=== PATIENT | female | born 1990 | race Caucasian/White ===

== ENCOUNTER 2016-07-11 04:12 | Emergency (ER) | payer OTHER ==
[2016-07-11] MEDS ORDERED: KETOROLAC 30 MG/ML VIAL (J1885) As Ordered ONE (04:37)
--- NOTE | 2016-07-11 05:39 | EDDOCDS ---
Physician Documentation [facility] Name: Eufemia Alonso Age: 25 yrs Sex: Female : 1990 Arrival Date: 07/11/2016 Time: 04:12 Bed 8 Private MD: Disposition: 07/11/16 05:27 Discharged to Home/Self Care. Impression: Unspecified dislocation of right acromioclavicular joint - Grade I - no more than 50 %. - Condition is Stable. - Medication Reconciliation, Local Pharmacy Hours form. - Follow up: Alok Mack; When: Call to arrange an appointment; Reason: Recheck today's complaints. - Problem is new. - Symptoms have improved. Historical: - Allergies: No known drug Allergies; - Home Meds: 1. none - PMHx: none; - PSHx: none; - Social history: Smoking status: Patient uses tobacco products, current every day smoker. No barriers to communication noted, The patient speaks fluent [place]. - Family history: Not pertinent. - : The pt / caregiver states he / she is not on anticoagulants. Home medication list is obtained from the patient. - Exposure Risk Screening:: None identified. GLOBAL CEO: 07/11 04:16 LMP 06/02/2016 af2 Vital Signs: 04:16 BP 157 / 77 RA; Pulse 105; Resp 18 S; Temp 97.4(O); Pulse Ox 99% on R/A; Weight 61.23 af2 kg / 134.99 lbs (R); Height 5 ft. 6 in. (167.64 cm) (R); Pain 5/10; 05:34 BP 132 / 75; Pulse 90; Resp 18; Temp 98.0(O); Pulse Ox 99% on R/A; Pain 0/10; kas2 04:16 Body Mass Index 21.79 (61.23 kg, 167.64 cm) af2 MDM: 04:33 ketorolac 60 mg IM once ordered. cs11 04:34 Shoulder, Complete Ordered. EDMS 05:02 Financial registration complete. hs2 05:03 [facility] Payment Agreement was scanned into [employer] and attached to record. hs2 05:05 Clavicle Ordered. EDMS 05:25 Sling ordered. cs11 Administered Medications: 04:41 Drug: ketorolac 60 mg [ketorolac 30 mg/mL (1 mL) injection solution (2 mL)] Route: IM; kas2 Site: left deltoid; Signatures: Dispatcher [employer] Juan Diego Gregg, DO cs11 Norma EsparzaRN RN af2 Eloisa Lozoya, Reg Reg hs2 Fadumo Moon RN RN kas2 The chart was reviewed and I authenticate all verbal orders and agree with the evaluation and treatment provided.Attachments: 05:03 [facility] Payment Agreement hs2 MTDD
--- NOTE | 2016-07-11 05:39 | EDDOCDS ---
Nurse's Notes [facility] Name: Eufemia Alonso Age: 25 yrs Sex: Female : 1990 Arrival Date: 07/11/2016 Time: 04:12 Bed 8 Private MD: Diagnosis: Unspecified dislocation of right acromioclavicular joint-Grade I - no more than 50 % Presentation: 07/11 04:17 Presenting complaint: Patient states: "I dislocated my right shoulder." Pt declines to af2 answer how. Adult Sepsis Screening: The patient does not have new or worsening altered mentation. Patient's respiratory rate is less than 22. Systolic blood pressure is greater than 100. Patient has a qSOFA score of 0- Negative Sepsis Screen. Suicide/Homicide risk assessment- the patient denies having any suicidal and/or homicidal ideations and does not present with any other emotional, behavioral or mental health complaints. 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 Transition of care: patient was not received from another setting of care. 04:17 Acuity: LOKI Level 4 af2 04:17 Method Of Arrival: Walkin/Carried/Asstd af2 Triage Assessment: 04:19 General: Appears in no apparent distress, Behavior is cooperative. Pain: Location: af2 anterior aspect of right shoulder Pain currently is 5 out of 10 on a pain scale. Pt Declines HIV testing. Musculoskeletal: Reports pain in anterior aspect of right shoulder. 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 none - PMHx: none; - PSHx: none; - Social history: Smoking status: Patient uses tobacco products, current every day smoker. No barriers to communication noted, The patient speaks fluent Swedish. - Family history: Not pertinent. - : The pt / caregiver states he / she is not on anticoagulants. Home medication list is obtained from the patient. - Exposure Risk Screening:: None identified. Screenin:20 Screening information is obtained from the patient. Fall risk: No risks identified. af2 Assistance ADL's: requires no assistance with activities of daily living. Abuse/DV Screen: The patient / caregiver reports he/she is: not in a situation that causes fear, pain or injury. Nutritional screening: No deficits noted. Advance Directives: There is no active DNR order. home support is adequate. 04:42 Abuse/DV Screen: The patient / caregiver reports he/she is: in a living situation that kas2 causes fear, pain or injury. Patient has a safe place to go to with a friend. Patient is refusing to talk with one of our social workers about her situation but took the pamphlets for domestic violence and victim assistance program. Assessment: 04:40 General: Appears in no apparent distress, uncomfortable, well nourished, well groomed, kas2 Behavior is appropriate for age, cooperative. Pain: Location: anterior aspect of right shoulder and right arm Pain currently is 5 out of 10 on a pain scale. Neurological: Level of Consciousness is awake, alert, Oriented to person, place, time. Cardiovascular: Rhythm is regular. Respiratory: Airway is patent Respiratory effort is even, unlabored, Respiratory pattern is regular, symmetrical, Breath sounds are clear bilaterally. Derm: Skin is intact, Skin is dry, Skin is pink, warm & dry. Skin temperature is warm. Musculoskeletal: Circulation, motion, and sensation intact Capillary refill < 3 seconds Range of motion limited in anterior aspect of right shoulder and right arm No deformity noted Swelling absent. 05:17 General: Patient sitting in bed with friend at bedside. No apparent distress. Appears kas2 comfortable. Call sinclair within reach. Will continue to monitor.. 05:34 General: Sling applied to R arm.. kas2 Vital Signs: 04:16 BP 157 / 77 RA; Pulse 105; Resp 18 S; Temp 97.4(O); Pulse Ox 99% on R/A; Weight 61.23 af2 kg (R); Height 5 ft. 6 in. (167.64 cm) (R); Pain 5/10; 05:34 BP 132 / 75; Pulse 90; Resp 18; Temp 98.0(O); Pulse Ox 99% on R/A; Pain 0/10; kas2 04:16 Body Mass Index 21.79 (61.23 kg, 167.64 cm) af2 Vitals: 04:16 Log In Time: July 11, 2016 at 04:09. af2 ED Course: 04:13 Patient visited by Elaine Long. gjb 04:13 Patient moved to Waiting gj 04:18 Triage Initiated af2 04:21 Fadumo Moon RN is Primary Nurse. af2 04:21 Patient moved to 8 af2 04:26 Juan Diego Diaz DO is Attending Physician. cs11 04:26 Patient visited by Juan Diego Diaz DO. cs11 04:43 Patient visited by Fadumo Moon RN. kas2 05:03 [facility] Payment Agreement was scanned into [employer] and attached to record. hs2 05:07 Patient name changed from Eufemia\\S\\\\S\\Gavin\\S\\ to Eufemia\\S\\ \\S\\Gavin. EDMS 05:08 Patient name changed from Eufemia\\S\\ \\S\\Gavin\\S\\ to Eufemia\\S\\Alonso\\S\\Gavin. EDMS 05:20 Patient visited by Fadumo Moon RN. kas2 05:25 Alok Mack is Referral Physician. cs11 05:37 No IV's were initiated during this patient's visit. No procedures done that require kas2 assistance. Sling applied to right arm. Patient with positive distal sensation and brisk distal capillary refill after application. 05:38 Patient visited by Fadumo Moon RN. kas2 05:38 The patient / caregiver is instructed regarding the plan of care and ED course. kas2 Administered Medications: 04:41 Drug: ketorolac 60 mg [ketorolac 30 mg/mL (1 mL) injection solution (2 mL)] Route: IM; kas2 Site: left deltoid; Order Results: There are currently no results for this order. Outcome: 05:27 Discharge ordered by Provider. cs11 05:37 Discharge Assessment: patient administered narcotics - no. The following High Risk [facility] Discharge criteria are identified: None. Discharged to home ambulatory, with friend. Condition: good Condition: stable Condition: improved. No special radiology studies were completed. Property :Personal belongings accompany Pt. 05:38 Patient left the ED. kas2 Signatures: Dispatcher [employer] EDMS Juan Diego Diaz DO DO cs11 Norma Esparza RN RN af2 Elaine Long Hillary, Reg Reg hs2 Fadumo Moon RN RN kas2 MTDD
--- NOTE | 2016-07-11 08:06 | REP ---
Clinical: Trauma. Technique: AP and axial views of the right clavicle. Findings: There is a small smoothly corticated calcified density in the acromioclavicular joint which is of uncertain etiology. While acute fracture cannot be excluded, its appearance more likely suggests a nonacute, chronic structure and may be related to old injury or unfused apophysis. No further evidence for acute trauma/injury is appreciated. The sternoclavicular joint and the body of the clavicle appear intact. The glenohumeral joint appears intact. Impression: Small density in the acromioclavicular joint as described above likely nonacute however correlation is recommended. Signed by Jose Carlos Guevara MD 07/11/2016 07:57 A
--- NOTE | 2016-07-11 08:28 | REP ---
Clinical: Trauma. Technique: Internal rotation, external rotation, and Y view. Findings: There is a small smoothly corticated calcified density in the acromioclavicular joint which is of uncertain etiology. While acute fracture cannot be excluded, its appearance more likely suggests a nonacute, chronic structure and may be related to old injury or unfused apophysis. The acromioclavicular joint is otherwise normal in appearance. The glenohumeral joint appears intact and normal. Impression: Well corticated density at the acromioclavicular joint appears nonacute and possibly related to old injury or unfused apophysis. Right shoulder appears otherwise normal. Signed by Jose Carlos Guevara MD 07/11/2016 08:19 A
--- NOTE | 2016-07-13 06:38 | EDDOCDS ---
Physician Documentation [facility] Name: Eufemia Alonso Age: 25 yrs Sex: Female : 1990 Arrival Date: 07/11/2016 Time: 04:12 Bed 8 Private MD: Disposition: 07/11/16 05:27 Discharged to Home/Self Care. Impression: Unspecified dislocation of right acromioclavicular joint - Grade I - no more than 50 %. - Condition is Stable. - Medication Reconciliation, Local Pharmacy Hours form. - Follow up: Alok Mack; When: Call to arrange an appointment; Reason: Recheck today's complaints. - Problem is new. - Symptoms have improved. Historical: - Allergies: No known drug Allergies; - Home Meds: 1. none - PMHx: none; - PSHx: none; - Social history: Smoking status: Patient uses tobacco products, current every day smoker. No barriers to communication noted, The patient speaks fluent [place]. - Family history: Not pertinent. - : The pt / caregiver states he / she is not on anticoagulants. Home medication list is obtained from the patient. - Exposure Risk Screening:: None identified. 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 6 in. (167.64 cm) (R); Pain 5/10; 05:34 BP 132 / 75; Pulse 90; Resp 18; Temp 98.0(O); Pulse Ox 99% on R/A; Pain 0/10; kas2 04:16 Body Mass Index 21.79 (61.23 kg, 167.64 cm) af2 MDM: 04:33 ketorolac 60 mg IM once ordered. cs11 04:34 Shoulder, Complete Ordered. EDMS 05:02 Financial registration complete. hs2 05:03 [facility] Payment Agreement was scanned into [employer] and attached to record. hs2 05:05 Clavicle Ordered. EDMS 05:25 Sling ordered. cs11 09:05 T-Sheet-- Draft Copy was scanned into [employer] and attached to record. [facility] Administered Medications: 04:41 Drug: ketorolac 60 mg [ketorolac 30 mg/mL (1 mL) injection solution (2 mL)] Route: IM; [facility] Site: left deltoid; Signatures: Dispatcher [employer] EDJuan Diego Garza DO DO cs11 Norma Esparza RN RN af2 Eloisa Lozoya, Reg Reg hs2 Fadumo Moon RN RN kas2 Carmen Rausch [facility] The chart was reviewed and I authenticate all verbal orders and agree with the evaluation and treatment provided.Attachments: 05:03 [facility] Payment Agreement hs2 09:05 T-Sheet-- Draft Copy [facility] Chart Complete MTDD
--- NOTE | 2016-07-13 06:38 | EDDOCDS ---
Nurse's Notes [facility] Name: Eufemia Alonso Age: 25 yrs Sex: Female : 1990 Arrival Date: 07/11/2016 Time: 04:12 Bed 8 Private MD: Diagnosis: Unspecified dislocation of right acromioclavicular joint-Grade I - no more than 50 % Presentation: 07/11 04:17 Presenting complaint: Patient states: "I dislocated my right shoulder." Pt declines to af2 answer how. Adult Sepsis Screening: The patient does not have new or worsening altered mentation. Patient's respiratory rate is less than 22. Systolic blood pressure is greater than 100. Patient has a qSOFA score of 0- Negative Sepsis Screen. Suicide/Homicide risk assessment- the patient denies having any suicidal and/or homicidal ideations and does not present with any other emotional, behavioral or mental health complaints. 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 Transition of care: patient was not received from another setting of care. 04:17 Acuity: LOKI Level 4 af2 04:17 Method Of Arrival: Walkin/Carried/Asstd af2 Triage Assessment: 04:19 General: Appears in no apparent distress, Behavior is cooperative. Pain: Location: af2 anterior aspect of right shoulder Pain currently is 5 out of 10 on a pain scale. Pt Declines HIV testing. Musculoskeletal: Reports pain in anterior aspect of right shoulder. 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 none - PMHx: none; - PSHx: none; - Social history: Smoking status: Patient uses tobacco products, current every day smoker. No barriers to communication noted, The patient speaks fluent Pashto. - Family history: Not pertinent. - : The pt / caregiver states he / she is not on anticoagulants. Home medication list is obtained from the patient. - Exposure Risk Screening:: None identified. Screenin:20 Screening information is obtained from the patient. Fall risk: No risks identified. af2 Assistance ADL's: requires no assistance with activities of daily living. Abuse/DV Screen: The patient / caregiver reports he/she is: not in a situation that causes fear, pain or injury. Nutritional screening: No deficits noted. Advance Directives: There is no active DNR order. home support is adequate. 04:42 Abuse/DV Screen: The patient / caregiver reports he/she is: in a living situation that kas2 causes fear, pain or injury. Patient has a safe place to go to with a friend. Patient is refusing to talk with one of our social workers about her situation but took the pamphlets for domestic violence and victim assistance program. Assessment: 04:40 General: Appears in no apparent distress, uncomfortable, well nourished, well groomed, kas2 Behavior is appropriate for age, cooperative. Pain: Location: anterior aspect of right shoulder and right arm Pain currently is 5 out of 10 on a pain scale. Neurological: Level of Consciousness is awake, alert, Oriented to person, place, time. Cardiovascular: Rhythm is regular. Respiratory: Airway is patent Respiratory effort is even, unlabored, Respiratory pattern is regular, symmetrical, Breath sounds are clear bilaterally. Derm: Skin is intact, Skin is dry, Skin is pink, warm & dry. Skin temperature is warm. Musculoskeletal: Circulation, motion, and sensation intact Capillary refill < 3 seconds Range of motion limited in anterior aspect of right shoulder and right arm No deformity noted Swelling absent. 05:17 General: Patient sitting in bed with friend at bedside. No apparent distress. Appears kas2 comfortable. Call sinclair within reach. Will continue to monitor.. 05:34 General: Sling applied to R arm.. kas2 Vital Signs: 04:16 BP 157 / 77 RA; Pulse 105; Resp 18 S; Temp 97.4(O); Pulse Ox 99% on R/A; Weight 61.23 af2 kg (R); Height 5 ft. 6 in. (167.64 cm) (R); Pain 5/10; 05:34 BP 132 / 75; Pulse 90; Resp 18; Temp 98.0(O); Pulse Ox 99% on R/A; Pain 0/10; kas2 04:16 Body Mass Index 21.79 (61.23 kg, 167.64 cm) af2 Vitals: 04:16 Log In Time: July 11, 2016 at 04:09. af2 ED Course: 04:13 Patient visited by Elaine Long. gjb 04:13 Patient moved to Waiting gj 04:18 Triage Initiated af2 04:21 Fadumo Moon RN is Primary Nurse. af2 04:21 Patient moved to 8 af2 04:26 Juan Diego Diaz DO is Attending Physician. cs11 04:26 Patient visited by Juan Diego Diaz DO. cs11 04:43 Patient visited by Fadumo Moon RN. kas2 05:03 [facility] Payment Agreement was scanned into [employer] and attached to record. hs2 05:07 Patient name changed from Eufemia\\S\\\\S\\Gavin\\S\\ to Eufemia\\S\\ \\S\\Gavin. EDMS 05:08 Patient name changed from Eufemia\\S\\ \\S\\Gavin\\S\\ to Eufemia\\S\\Alonso\\S\\Gavin. EDMS 05:20 Patient visited by Fadumo Moon RN. kas2 05:25 Alok Mack is Referral Physician. cs11 05:37 No IV's were initiated during this patient's visit. No procedures done that require kas2 assistance. Sling applied to right arm. Patient with positive distal sensation and brisk distal capillary refill after application. 05:38 Patient visited by Fadumo Moon RN. kas2 05:38 The patient / caregiver is instructed regarding the plan of care and ED course. kas2 08:32 Clavicle Returned. EDMS 08:33 Shoulder, Complete Returned. EDMS 09:05 T-Sheet-- Draft Copy was scanned into [employer] and attached to record. [facility] Administered Medications: 04:41 Drug: ketorolac 60 mg [ketorolac 30 mg/mL (1 mL) injection solution (2 mL)] Route: IM; kas2 Site: left deltoid; Order Results: Radiology Order: Shoulder, Complete Test: Shoulder, Complete REASON FOR EXAMINATION: Trauma; Clinical: Trauma.; ; Technique: Internal rotation, external rotation, and Y view.; ; Findings:; ; There is a small smoothly corticated calcified density in the acromioclavicular; joint which is of uncertain etiology. While acute fracture cannot be excluded,; its appearance more likely suggests a nonacute, chronic structure and may be; related to old injury or unfused apophysis. The acromioclavicular joint is; otherwise normal in appearance. The glenohumeral joint appears intact and; normal.; ; Impression:; Well corticated density at the acromioclavicular joint appears nonacute and; possibly related to old injury or unfused apophysis.; Right shoulder appears otherwise normal.; ; ; Signed by; Jose Carlos Guevara MD 07/11/2016 08:19 A; Radiology Order: Clavicle Test: Clavicle REASON FOR EXAMINATION: axial R clav; Clinical: Trauma.; ; Technique: AP and axial views of the right clavicle.; ; Findings:; There is a small smoothly corticated calcified density in the acromioclavicular; joint which is of uncertain etiology. While acute fracture cannot be excluded,; its appearance more likely suggests a nonacute, chronic structure and may be; related to old injury or unfused apophysis. No further evidence for acute; trauma/injury is appreciated. The sternoclavicular joint and the body of the; clavicle appear intact. The glenohumeral joint appears intact.; ; Impression:; Small density in the acromioclavicular joint as described above likely nonacute; however correlation is recommended.; ; ; Signed by; Jose Carlos Guevara MD 07/11/2016 07:57 A; Outcome: 05:27 Discharge ordered by Provider. cs11 05:37 Discharge Assessment: patient administered narcotics - no. The following High Risk [facility] Discharge criteria are identified: None. Discharged to home ambulatory, with friend. Condition: good Condition: stable Condition: improved. No special radiology studies were completed. Property :Personal belongings accompany Pt. 05:38 Patient left the ED. [facility] Signatures: Dispatcher [employer] EDMS Juan Diego Diaz DO DO cs11 Norma Esparza RN RN af2 Elaine Long Hillary, Reg Reg hs2 Fadumo Moon RN RN kas2 Carmen Rausch Chart Complete MTDD
--- NOTE | 2016-07-13 06:38 | EDDOCDS ---
Physician Documentation [facility] Name: Eufemia Alonso Age: 25 yrs Sex: Female : 1990 Arrival Date: 07/11/2016 Time: 04:12 Bed 8 Private MD: Disposition: 07/11/16 05:27 Discharged to Home/Self Care. Impression: Unspecified dislocation of right acromioclavicular joint - Grade I - no more than 50 %. - Condition is Stable. - Medication Reconciliation, Local Pharmacy Hours form. - Follow up: Alok Mack; When: Call to arrange an appointment; Reason: Recheck today's complaints. - Problem is new. - Symptoms have improved. Historical: - Allergies: No known drug Allergies; - Home Meds: 1. none - PMHx: none; - PSHx: none; - Social history: Smoking status: Patient uses tobacco products, current every day smoker. No barriers to communication noted, The patient speaks fluent Tanzanian. - Family history: Not pertinent. - : The pt / caregiver states he / she is not on anticoagulants. Home medication list is obtained from the patient. - Exposure Risk Screening:: None identified. 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 6 in. (167.64 cm) (R); Pain 5/10; 05:34 BP 132 / 75; Pulse 90; Resp 18; Temp 98.0(O); Pulse Ox 99% on R/A; Pain 0/10; kas2 04:16 Body Mass Index 21.79 (61.23 kg, 167.64 cm) af2 MDM: 04:33 ketorolac 60 mg IM once ordered. cs11 04:34 Shoulder, Complete Ordered. EDMS 05:02 Financial registration complete. hs2 05:03 [facility] Payment Agreement was scanned into [employer] and attached to record. hs2 05:05 Clavicle Ordered. EDMS 05:25 Sling ordered. cs11 09:05 T-Sheet-- Draft Copy was scanned into [employer] and attached to record. [facility] Administered Medications: 04:41 Drug: ketorolac 60 mg [ketorolac 30 mg/mL (1 mL) injection solution (2 mL)] Route: IM; [facility] Site: left deltoid; Signatures: Dispatcher [employer] EDJuan Diego Garza DO DO cs11 Norma Esparza RN RN af2 Eloisa Lozoya, Reg Reg hs2 Fadumo Moon RN RN kas2 Carmen Rausch [facility] The chart was reviewed and I authenticate all verbal orders and agree with the evaluation and treatment provided.Attachments: 05:03 [facility] Payment Agreement hs2 09:05 T-Sheet-- Draft Copy [facility] Chart Complete MTDD
--- NOTE | 2016-07-13 20:31 | EDDOCDS ---
Physician Documentation [facility] Name: Eufemia Alonso Age: 25 yrs Sex: Female : 1990 Arrival Date: 07/11/2016 Time: 04:12 Bed 8 Private MD: Disposition: 07/11/16 05:27 Discharged to Home/Self Care. Impression: Unspecified dislocation of right acromioclavicular joint - Grade I - no more than 50 %. - Condition is Stable. - Medication Reconciliation, Local Pharmacy Hours form. - Follow up: Alok Mack; When: Call to arrange an appointment; Reason: Recheck today's complaints. - Problem is new. - Symptoms have improved. Historical: - Allergies: No known drug Allergies; - Home Meds: 1. none - PMHx: none; - PSHx: none; - Social history: Smoking status: Patient uses tobacco products, current every day smoker. No barriers to communication noted, The patient speaks fluent Liberian. - Family history: Not pertinent. - : The pt / caregiver states he / she is not on anticoagulants. Home medication list is obtained from the patient. - Exposure Risk Screening:: None identified. 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 6 in. (167.64 cm) (R); Pain 5/10; 05:34 BP 132 / 75; Pulse 90; Resp 18; Temp 98.0(O); Pulse Ox 99% on R/A; Pain 0/10; kas2 04:16 Body Mass Index 21.79 (61.23 kg, 167.64 cm) af2 MDM: 04:33 ketorolac 60 mg IM once ordered. cs11 04:34 Shoulder, Complete Ordered. EDMS 05:02 Financial registration complete. hs2 05:03 [facility] Payment Agreement was scanned into [employer] and attached to record. hs2 05:05 Clavicle Ordered. EDMS 05:25 Sling ordered. cs11 09:05 T-Sheet-- Draft Copy was scanned into [employer] and attached to record. [facility] Administered Medications: 04:41 Drug: ketorolac 60 mg [ketorolac 30 mg/mL (1 mL) injection solution (2 mL)] Route: IM; kas2 Site: left deltoid; Addendum: 07/13/2016 20:29 Radiology Callback: Radiology results faxed to primary care physician/provider. ncog ml faxed formal report of right clavicle film mlg. Signatures: Dispatcher MedHo EDOR Akilah Dias MD MD ml Juan Diego Diaz, DO cs11 Norma EsparzaRN RN af2 Eloisa Lozoya, Reg Reg hs2 Fadumo Moon RN RN kas2 Carmen Rausch [facility] The chart was reviewed and I authenticate all verbal orders and agree with the evaluation and treatment provided.Attachments: 07/11 05:03 [facility] Payment Agreement hs2 09:05 T-Sheet-- Draft Copy [facility] MTDD
--- NOTE | 2016-07-13 20:31 | EDDOCDS ---
Nurse's Notes [facility] Name: Eufemia Alonso Age: 25 yrs Sex: Female : 1990 Arrival Date: 07/11/2016 Time: 04:12 Bed 8 Private MD: Diagnosis: Unspecified dislocation of right acromioclavicular joint-Grade I - no more than 50 % Presentation: 07/11 04:17 Presenting complaint: Patient states: "I dislocated my right shoulder." Pt declines to af2 answer how. Adult Sepsis Screening: The patient does not have new or worsening altered mentation. Patient's respiratory rate is less than 22. Systolic blood pressure is greater than 100. Patient has a qSOFA score of 0- Negative Sepsis Screen. Suicide/Homicide risk assessment- the patient denies having any suicidal and/or homicidal ideations and does not present with any other emotional, behavioral or mental health complaints. 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 Transition of care: patient was not received from another setting of care. 04:17 Acuity: LOKI Level 4 af2 04:17 Method Of Arrival: Walkin/Carried/Asstd af2 Triage Assessment: 04:19 General: Appears in no apparent distress, Behavior is cooperative. Pain: Location: af2 anterior aspect of right shoulder Pain currently is 5 out of 10 on a pain scale. Pt Declines HIV testing. Musculoskeletal: Reports pain in anterior aspect of right shoulder. 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 none - PMHx: none; - PSHx: none; - Social history: Smoking status: Patient uses tobacco products, current every day smoker. No barriers to communication noted, The patient speaks fluent German. - Family history: Not pertinent. - : The pt / caregiver states he / she is not on anticoagulants. Home medication list is obtained from the patient. - Exposure Risk Screening:: None identified. Screenin:20 Screening information is obtained from the patient. Fall risk: No risks identified. af2 Assistance ADL's: requires no assistance with activities of daily living. Abuse/DV Screen: The patient / caregiver reports he/she is: not in a situation that causes fear, pain or injury. Nutritional screening: No deficits noted. Advance Directives: There is no active DNR order. home support is adequate. 04:42 Abuse/DV Screen: The patient / caregiver reports he/she is: in a living situation that kas2 causes fear, pain or injury. Patient has a safe place to go to with a friend. Patient is refusing to talk with one of our social workers about her situation but took the pamphlets for domestic violence and victim assistance program. Assessment: 04:40 General: Appears in no apparent distress, uncomfortable, well nourished, well groomed, kas2 Behavior is appropriate for age, cooperative. Pain: Location: anterior aspect of right shoulder and right arm Pain currently is 5 out of 10 on a pain scale. Neurological: Level of Consciousness is awake, alert, Oriented to person, place, time. Cardiovascular: Rhythm is regular. Respiratory: Airway is patent Respiratory effort is even, unlabored, Respiratory pattern is regular, symmetrical, Breath sounds are clear bilaterally. Derm: Skin is intact, Skin is dry, Skin is pink, warm & dry. Skin temperature is warm. Musculoskeletal: Circulation, motion, and sensation intact Capillary refill < 3 seconds Range of motion limited in anterior aspect of right shoulder and right arm No deformity noted Swelling absent. 05:17 General: Patient sitting in bed with friend at bedside. No apparent distress. Appears kas2 comfortable. Call sinclair within reach. Will continue to monitor.. 05:34 General: Sling applied to R arm.. kas2 Vital Signs: 04:16 BP 157 / 77 RA; Pulse 105; Resp 18 S; Temp 97.4(O); Pulse Ox 99% on R/A; Weight 61.23 af2 kg (R); Height 5 ft. 6 in. (167.64 cm) (R); Pain 5/10; 05:34 BP 132 / 75; Pulse 90; Resp 18; Temp 98.0(O); Pulse Ox 99% on R/A; Pain 0/10; kas2 04:16 Body Mass Index 21.79 (61.23 kg, 167.64 cm) af2 Vitals: 04:16 Log In Time: July 11, 2016 at 04:09. af2 ED Course: 04:13 Patient visited by Elaine Long. gjb 04:13 Patient moved to Waiting gj 04:18 Triage Initiated af2 04:21 Fadumo Moon RN is Primary Nurse. af2 04:21 Patient moved to 8 af2 04:26 Juan Diego Diaz DO is Attending Physician. cs11 04:26 Patient visited by Juan Diego Diaz DO. cs11 04:43 Patient visited by Fadumo Moon RN. kas2 05:03 [facility] Payment Agreement was scanned into [employer] and attached to record. hs2 05:07 Patient name changed from Eufemia\\S\\\\S\\Gavin\\S\\ to Eufemia\\S\\ \\S\\Gavin. EDMS 05:08 Patient name changed from Eufemia\\S\\ \\S\\Gavin\\S\\ to Eufemia\\S\\Alonso\\S\\Gavin. EDMS 05:20 Patient visited by Fadumo Moon RN. kas2 05:25 Alok Mack is Referral Physician. cs11 05:37 No IV's were initiated during this patient's visit. No procedures done that require kas2 assistance. Sling applied to right arm. Patient with positive distal sensation and brisk distal capillary refill after application. 05:38 Patient visited by Fadumo Moon RN. kas2 05:38 The patient / caregiver is instructed regarding the plan of care and ED course. kas2 08:32 Clavicle Returned. EDMS 08:33 Shoulder, Complete Returned. EDMS 09:05 T-Sheet-- Draft Copy was scanned into [employer] and attached to record. [facility] Administered Medications: 04:41 Drug: ketorolac 60 mg [ketorolac 30 mg/mL (1 mL) injection solution (2 mL)] Route: IM; kas2 Site: left deltoid; Order Results: Radiology Order: Shoulder, Complete Test: Shoulder, Complete REASON FOR EXAMINATION: Trauma; Clinical: Trauma.; ; Technique: Internal rotation, external rotation, and Y view.; ; Findings:; ; There is a small smoothly corticated calcified density in the acromioclavicular; joint which is of uncertain etiology. While acute fracture cannot be excluded,; its appearance more likely suggests a nonacute, chronic structure and may be; related to old injury or unfused apophysis. The acromioclavicular joint is; otherwise normal in appearance. The glenohumeral joint appears intact and; normal.; ; Impression:; Well corticated density at the acromioclavicular joint appears nonacute and; possibly related to old injury or unfused apophysis.; Right shoulder appears otherwise normal.; ; ; Signed by; Jose Carlos Guevara MD 07/11/2016 08:19 A; Radiology Order: Clavicle Test: Clavicle REASON FOR EXAMINATION: axial R clav; Clinical: Trauma.; ; Technique: AP and axial views of the right clavicle.; ; Findings:; There is a small smoothly corticated calcified density in the acromioclavicular; joint which is of uncertain etiology. While acute fracture cannot be excluded,; its appearance more likely suggests a nonacute, chronic structure and may be; related to old injury or unfused apophysis. No further evidence for acute; trauma/injury is appreciated. The sternoclavicular joint and the body of the; clavicle appear intact. The glenohumeral joint appears intact.; ; Impression:; Small density in the acromioclavicular joint as described above likely nonacute; however correlation is recommended.; ; ; Signed by; Jose Carlos Guevara MD 07/11/2016 07:57 A; Outcome: 05:27 Discharge ordered by Provider. cs11 05:37 Discharge Assessment: patient administered narcotics - no. The following High Risk [facility] Discharge criteria are identified: None. Discharged to home ambulatory, with friend. Condition: good Condition: stable Condition: improved. No special radiology studies were completed. Property :Personal belongings accompany Pt. 05:38 Patient left the ED. [facility] Signatures: Dispatcher MedHost EDMS Juan Diego Diaz DO DO cs11 Norma Esparza RN RN ashok2 Elaine Long Hillary, Reg Reg hs2 Fadumo Moon RN RN kas2 Carmen Rausch MTDD
--- NOTE | 2016-07-13 20:31 | EDDOCDS ---
Physician Documentation [facility] Name: Eufemia Alonso Age: 25 yrs Sex: Female : 1990 Arrival Date: 07/11/2016 Time: 04:12 Bed 8 Private MD: Disposition: 07/11/16 05:27 Discharged to Home/Self Care. Impression: Unspecified dislocation of right acromioclavicular joint - Grade I - no more than 50 %. - Condition is Stable. - Medication Reconciliation, Local Pharmacy Hours form. - Follow up: Alok Mack; When: Call to arrange an appointment; Reason: Recheck today's complaints. - Problem is new. - Symptoms have improved. Historical: - Allergies: No known drug Allergies; - Home Meds: 1. none - PMHx: none; - PSHx: none; - Social history: Smoking status: Patient uses tobacco products, current every day smoker. No barriers to communication noted, The patient speaks fluent Serbian. - Family history: Not pertinent. - : The pt / caregiver states he / she is not on anticoagulants. Home medication list is obtained from the patient. - Exposure Risk Screening:: None identified. 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 6 in. (167.64 cm) (R); Pain 5/10; 05:34 BP 132 / 75; Pulse 90; Resp 18; Temp 98.0(O); Pulse Ox 99% on R/A; Pain 0/10; kas2 04:16 Body Mass Index 21.79 (61.23 kg, 167.64 cm) af2 MDM: 04:33 ketorolac 60 mg IM once ordered. cs11 04:34 Shoulder, Complete Ordered. EDMS 05:02 Financial registration complete. hs2 05:03 [facility] Payment Agreement was scanned into [employer] and attached to record. hs2 05:05 Clavicle Ordered. EDMS 05:25 Sling ordered. cs11 09:05 T-Sheet-- Draft Copy was scanned into [employer] and attached to record. [facility] Administered Medications: 04:41 Drug: ketorolac 60 mg [ketorolac 30 mg/mL (1 mL) injection solution (2 mL)] Route: IM; kas2 Site: left deltoid; Addendum: 07/13/2016 20:29 Radiology Callback: Radiology results faxed to primary care physician/provider. ncog ml faxed formal report of right clavicle film mlg. Signatures: Dispatcher MedHo EDLA Akilah Dias MD MD ml Juan Diego Diaz, DO cs11 Norma EsparzaRN RN af2 Eloisa Lozoya, Reg Reg hs2 Fadumo Moon RN RN kas2 Carmen Rausch [facility] The chart was reviewed and I authenticate all verbal orders and agree with the evaluation and treatment provided.Attachments: 07/11 05:03 [facility] Payment Agreement hs2 09:05 T-Sheet-- Draft Copy [facility] MTDD
--- NOTE | 2016-07-13 20:32 | EDDOCDS ---
Nurse's Notes [facility] Name: Eufemia Alonso Age: 25 yrs Sex: Female : 1990 Arrival Date: 07/11/2016 Time: 04:12 Bed 8 Private MD: Diagnosis: Unspecified dislocation of right acromioclavicular joint-Grade I - no more than 50 % Presentation: 07/11 04:17 Presenting complaint: Patient states: "I dislocated my right shoulder." Pt declines to af2 answer how. Adult Sepsis Screening: The patient does not have new or worsening altered mentation. Patient's respiratory rate is less than 22. Systolic blood pressure is greater than 100. Patient has a qSOFA score of 0- Negative Sepsis Screen. Suicide/Homicide risk assessment- the patient denies having any suicidal and/or homicidal ideations and does not present with any other emotional, behavioral or mental health complaints. 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 Transition of care: patient was not received from another setting of care. 04:17 Acuity: LOKI Level 4 af2 04:17 Method Of Arrival: Walkin/Carried/Asstd af2 Triage Assessment: 04:19 General: Appears in no apparent distress, Behavior is cooperative. Pain: Location: af2 anterior aspect of right shoulder Pain currently is 5 out of 10 on a pain scale. Pt Declines HIV testing. Musculoskeletal: Reports pain in anterior aspect of right shoulder. 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 none - PMHx: none; - PSHx: none; - Social history: Smoking status: Patient uses tobacco products, current every day smoker. No barriers to communication noted, The patient speaks fluent Kinyarwanda. - Family history: Not pertinent. - : The pt / caregiver states he / she is not on anticoagulants. Home medication list is obtained from the patient. - Exposure Risk Screening:: None identified. Screenin:20 Screening information is obtained from the patient. Fall risk: No risks identified. af2 Assistance ADL's: requires no assistance with activities of daily living. Abuse/DV Screen: The patient / caregiver reports he/she is: not in a situation that causes fear, pain or injury. Nutritional screening: No deficits noted. Advance Directives: There is no active DNR order. home support is adequate. 04:42 Abuse/DV Screen: The patient / caregiver reports he/she is: in a living situation that kas2 causes fear, pain or injury. Patient has a safe place to go to with a friend. Patient is refusing to talk with one of our social workers about her situation but took the pamphlets for domestic violence and victim assistance program. Assessment: 04:40 General: Appears in no apparent distress, uncomfortable, well nourished, well groomed, kas2 Behavior is appropriate for age, cooperative. Pain: Location: anterior aspect of right shoulder and right arm Pain currently is 5 out of 10 on a pain scale. Neurological: Level of Consciousness is awake, alert, Oriented to person, place, time. Cardiovascular: Rhythm is regular. Respiratory: Airway is patent Respiratory effort is even, unlabored, Respiratory pattern is regular, symmetrical, Breath sounds are clear bilaterally. Derm: Skin is intact, Skin is dry, Skin is pink, warm & dry. Skin temperature is warm. Musculoskeletal: Circulation, motion, and sensation intact Capillary refill < 3 seconds Range of motion limited in anterior aspect of right shoulder and right arm No deformity noted Swelling absent. 05:17 General: Patient sitting in bed with friend at bedside. No apparent distress. Appears kas2 comfortable. Call sinclair within reach. Will continue to monitor.. 05:34 General: Sling applied to R arm.. kas2 Vital Signs: 04:16 BP 157 / 77 RA; Pulse 105; Resp 18 S; Temp 97.4(O); Pulse Ox 99% on R/A; Weight 61.23 af2 kg (R); Height 5 ft. 6 in. (167.64 cm) (R); Pain 5/10; 05:34 BP 132 / 75; Pulse 90; Resp 18; Temp 98.0(O); Pulse Ox 99% on R/A; Pain 0/10; kas2 04:16 Body Mass Index 21.79 (61.23 kg, 167.64 cm) af2 Vitals: 04:16 Log In Time: July 11, 2016 at 04:09. af2 ED Course: 04:13 Patient visited by Elaine Long. gjb 04:13 Patient moved to Waiting gj 04:18 Triage Initiated af2 04:21 Fadumo Moon RN is Primary Nurse. af2 04:21 Patient moved to 8 af2 04:26 Juan Diego Diaz DO is Attending Physician. cs11 04:26 Patient visited by Juan Diego Diaz DO. cs11 04:43 Patient visited by Fadumo Moon RN. kas2 05:03 [facility] Payment Agreement was scanned into [employer] and attached to record. hs2 05:07 Patient name changed from Eufemia\\S\\\\S\\Gavin\\S\\ to Eufemia\\S\\ \\S\\Gavin. EDMS 05:08 Patient name changed from Eufemia\\S\\ \\S\\Gavin\\S\\ to Eufemia\\S\\Alonso\\S\\Gavin. EDMS 05:20 Patient visited by Fadumo Moon RN. kas2 05:25 Alok Mack is Referral Physician. cs11 05:37 No IV's were initiated during this patient's visit. No procedures done that require kas2 assistance. Sling applied to right arm. Patient with positive distal sensation and brisk distal capillary refill after application. 05:38 Patient visited by Fadumo Moon RN. kas2 05:38 The patient / caregiver is instructed regarding the plan of care and ED course. kas2 08:32 Clavicle Returned. EDMS 08:33 Shoulder, Complete Returned. EDMS 09:05 T-Sheet-- Draft Copy was scanned into [employer] and attached to record. [facility] Administered Medications: 04:41 Drug: ketorolac 60 mg [ketorolac 30 mg/mL (1 mL) injection solution (2 mL)] Route: IM; kas2 Site: left deltoid; Order Results: Radiology Order: Shoulder, Complete Test: Shoulder, Complete REASON FOR EXAMINATION: Trauma; Clinical: Trauma.; ; Technique: Internal rotation, external rotation, and Y view.; ; Findings:; ; There is a small smoothly corticated calcified density in the acromioclavicular; joint which is of uncertain etiology. While acute fracture cannot be excluded,; its appearance more likely suggests a nonacute, chronic structure and may be; related to old injury or unfused apophysis. The acromioclavicular joint is; otherwise normal in appearance. The glenohumeral joint appears intact and; normal.; ; Impression:; Well corticated density at the acromioclavicular joint appears nonacute and; possibly related to old injury or unfused apophysis.; Right shoulder appears otherwise normal.; ; ; Signed by; Jose Carlos Guevara MD 07/11/2016 08:19 A; Radiology Order: Clavicle Test: Clavicle REASON FOR EXAMINATION: axial R clav; Clinical: Trauma.; ; Technique: AP and axial views of the right clavicle.; ; Findings:; There is a small smoothly corticated calcified density in the acromioclavicular; joint which is of uncertain etiology. While acute fracture cannot be excluded,; its appearance more likely suggests a nonacute, chronic structure and may be; related to old injury or unfused apophysis. No further evidence for acute; trauma/injury is appreciated. The sternoclavicular joint and the body of the; clavicle appear intact. The glenohumeral joint appears intact.; ; Impression:; Small density in the acromioclavicular joint as described above likely nonacute; however correlation is recommended.; ; ; Signed by; Jose Carlos Guevara MD 07/11/2016 07:57 A; Outcome: 05:27 Discharge ordered by Provider. cs11 05:37 Discharge Assessment: patient administered narcotics - no. The following High Risk [facility] Discharge criteria are identified: None. Discharged to home ambulatory, with friend. Condition: good Condition: stable Condition: improved. No special radiology studies were completed. Property :Personal belongings accompany Pt. 05:38 Patient left the ED. [facility] Signatures: Dispatcher MedHost EDMS Juan Diego Diaz DO DO cs11 Norma Esparza RN RN af2 Elaine Long Hillary, Reg Reg hs2 Fadumo Moon RN RN kas2 Carmen Rausch Chart Complete MTDD
--- NOTE | 2016-07-13 20:32 | EDDOCDS ---
Physician Documentation [facility] Name: Eufemia Alonso Age: 25 yrs Sex: Female : 1990 Arrival Date: 07/11/2016 Time: 04:12 Bed 8 Private MD: Disposition: 07/11/16 05:27 Discharged to Home/Self Care. Impression: Unspecified dislocation of right acromioclavicular joint - Grade I - no more than 50 %. - Condition is Stable. - Medication Reconciliation, Local Pharmacy Hours form. - Follow up: Alok Mack; When: Call to arrange an appointment; Reason: Recheck today's complaints. - Problem is new. - Symptoms have improved. Historical: - Allergies: No known drug Allergies; - Home Meds: 1. none - PMHx: none; - PSHx: none; - Social history: Smoking status: Patient uses tobacco products, current every day smoker. No barriers to communication noted, The patient speaks fluent Stateless. - Family history: Not pertinent. - : The pt / caregiver states he / she is not on anticoagulants. Home medication list is obtained from the patient. - Exposure Risk Screening:: None identified. 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 6 in. (167.64 cm) (R); Pain 5/10; 05:34 BP 132 / 75; Pulse 90; Resp 18; Temp 98.0(O); Pulse Ox 99% on R/A; Pain 0/10; kas2 04:16 Body Mass Index 21.79 (61.23 kg, 167.64 cm) af2 MDM: 04:33 ketorolac 60 mg IM once ordered. cs11 04:34 Shoulder, Complete Ordered. EDMS 05:02 Financial registration complete. hs2 05:03 [facility] Payment Agreement was scanned into [employer] and attached to record. hs2 05:05 Clavicle Ordered. EDMS 05:25 Sling ordered. cs11 09:05 T-Sheet-- Draft Copy was scanned into [employer] and attached to record. [facility] Administered Medications: 04:41 Drug: ketorolac 60 mg [ketorolac 30 mg/mL (1 mL) injection solution (2 mL)] Route: IM; kas2 Site: left deltoid; Addendum: 07/13/2016 20:29 Radiology Callback: Radiology results faxed to primary care physician/provider. ncog ml faxed formal report of right clavicle film mlg. Signatures: Dispatcher MedHo EDTN Akilah Dias MD MD ml Juan Diego Diaz, DO cs11 Norma EsparzaRN RN af2 Eloisa Lozoya, Reg Reg hs2 Fadumo Moon RN RN kas2 Carmen Rausch [facility] The chart was reviewed and I authenticate all verbal orders and agree with the evaluation and treatment provided.Attachments: 07/11 05:03 [facility] Payment Agreement hs2 09:05 T-Sheet-- Draft Copy [facility] Chart Complete MTDD
--- NOTE | 2016-07-13 20:32 | EDDOCDS ---
Physician Documentation [facility] Name: Eufemia Alonso Age: 25 yrs Sex: Female : 1990 Arrival Date: 07/11/2016 Time: 04:12 Bed 8 Private MD: Disposition: 07/11/16 05:27 Discharged to Home/Self Care. Impression: Unspecified dislocation of right acromioclavicular joint - Grade I - no more than 50 %. - Condition is Stable. - Medication Reconciliation, Local Pharmacy Hours form. - Follow up: Alok Mack; When: Call to arrange an appointment; Reason: Recheck today's complaints. - Problem is new. - Symptoms have improved. Historical: - Allergies: No known drug Allergies; - Home Meds: 1. none - PMHx: none; - PSHx: none; - Social history: Smoking status: Patient uses tobacco products, current every day smoker. No barriers to communication noted, The patient speaks fluent Maur[place]. - Family history: Not pertinent. - : The pt / caregiver states he / she is not on anticoagulants. Home medication list is obtained from the patient. - Exposure Risk Screening:: None identified. 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 6 in. (167.64 cm) (R); Pain 5/10; 05:34 BP 132 / 75; Pulse 90; Resp 18; Temp 98.0(O); Pulse Ox 99% on R/A; Pain 0/10; kas2 04:16 Body Mass Index 21.79 (61.23 kg, 167.64 cm) af2 MDM: 04:33 ketorolac 60 mg IM once ordered. cs11 04:34 Shoulder, Complete Ordered. EDMS 05:02 Financial registration complete. hs2 05:03 [facility] Payment Agreement was scanned into [employer] and attached to record. hs2 05:05 Clavicle Ordered. EDMS 05:25 Sling ordered. cs11 09:05 T-Sheet-- Draft Copy was scanned into [employer] and attached to record. [facility] Administered Medications: 04:41 Drug: ketorolac 60 mg [ketorolac 30 mg/mL (1 mL) injection solution (2 mL)] Route: IM; kas2 Site: left deltoid; Addendum: 07/13/2016 20:29 Radiology Callback: Radiology results faxed to primary care physician/provider. ncog ml faxed formal report of right clavicle film mlg. Signatures: Dispatcher [employer] EDWA Akilah Dias MD MD ml Juan Diego Diaz, DO cs11 Norma EsparzaRN RN af2 Eloisa Lozoya, Reg Reg hs2 Fadumo Moon RN RN kas2 Carmen Rausch [facility] The chart was reviewed and I authenticate all verbal orders and agree with the evaluation and treatment provided.Attachments: 07/11 05:03 [facility] Payment Agreement hs2 09:05 T-Sheet-- Draft Copy [facility] Chart Complete MTDD
== END 2016-07-11 05:38 | disposition home or self-care (01) ==
LOC: M ED 04:12
DX: S43.101A Unspecified dislocation of right acromioclavicular joint, initial encounter (principal); X58.XXXA Exposure to other specified factors, initial encounter; Y92.89 Other specified places as the place of occurrence of the external cause; Y93.89 Activity, other specified; Y99.8 Other external cause status; F17.200 Nicotine dependence, unspecified, uncomplicated
CPT/HCPCS: 73000; 73030; 96374; 96375; 96376; 99283; J1885

== ENCOUNTER 2018-01-12 19:00 | Emergency (ER) | payer OTHER ==
[2018-01-12] MEDS: metroNIDAZOLE (FLAGYL) 500 MG TAB PO (20:54)
[2018-01-12 23:54] LABS: CHLAMYDIA DNA AMPLIFICATION NEGATIVE (NEGATIVE); GC DNA AMPLIFICATION NEGATIVE (NEGATIVE)
[2018-01-13 12:08] LABS: HEPATITIS B CORE ANTIBODY IGM NEGATIVE (NEGATIVE); HEPATITIS B SURFACE ANTIGEN NEGATIVE (NEGATIVE)
[2018-01-13 12:08] LABS: HEPATITIS C VIRUS ABY INDEX 0.1 INDEX (<0.8)
[2018-01-13 12:10] LABS: HEPATITIS A ANTIBODY IGM NEGATIVE (NEGATIVE)
== END 2018-01-12 21:09 | disposition home or self-care (01) ==
LOC: M ED 19:00
DX: N76.0 Acute vaginitis (principal); Z20.2 Contact with and (suspected) exposure to infections with a predominantly sexual mode of transmission; Z79.3 Long term (current) use of hormonal contraceptives
CPT/HCPCS: 87340